=== PATIENT | male | born 1965 | race Caucasian/White ===

== ENCOUNTER 2024-01-16 06:40 | Observation (INO) ==
--- NOTE | 2024-01-15 08:19 | Anesthesiology Consultation ---
Date of Service January 15, 2024 Assessment & Plan (1) Encounter for pre-operative examination: - Infectious disease screening: Per assessment on 01/15/24: No known infectious disease contacts or current infectious disease symptoms. No noted recent Covid positive test result. - Cardiology visit (10/09/23): "NSTEMI (12/2015).. 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 PFO s/p closure (25 mm Amplatzer Cribiform, 02/21/2016) c/b postprocedure AF s/p DCCV.. He is is seen in consultation for symptomatic PACs and PVCs.. Nonobstructive CAD on Cardiac CT.. Plan: Follow-up echo results.. Consider increasing metoprolol dosing in future for better control of palpitation. Continue metoprolol succinate 50 mg daily.. Continue lisinopril 10 mg daily.. Continue Crestor 40 mg daily.. Continue aspirin 81 mg.. Follow-up in 6 months." > Echo performed 10/25/23, unremarkable (details in testing section). 6 month f/u recommended. Chart Review Chart Review: Acceptable Risk for Surgery and Patient NOT seen in Pre Admission Testing History Surgery Operation Date: 01/16/24 08:15 Proposed Procedures p C5-C7 Anterior Cervical Discectomy and Fusion, Spinal Cord Monitoring - Mckay Monzon DO Height/Weight Height: 5 ft 11 in Weight: 131.542 kg Allergies Allergy/AdvReac Type Severity Reaction Status Date / Time clopidogrel [From Plavix] Allergy Severe Hives Verified 01/15/24 07:32 [id number] Reductase AdvReac Severe Muscle Pain Verified 01/15/24 07:45 Inhibitor Medications Home Medications Medication Instructions Recorded Confirmed Last Taken ascorbic acid (vitamin C) 500 mg 500 mg PO QPM 01/15/24 01/15/24 Unknown tablet (Vitamin C) aspirin 81 mg capsule 81 mg PO QPM 01/15/24 01/15/24 Unknown cholecalciferol (vitamin D3) 25 25 mcg PO QPM 01/15/24 01/15/24 Unknown mcg (1,000 unit) tablet (Vitamin D3) coenzyme Q10 100 mg capsule (Co 100 mg PO QPM 01/15/24 01/15/24 Unknown Q-10) lisinopril 20 mg tablet 20 mg PO QAM 01/15/24 01/15/24 Unknown magnesium glycinate 100 mg PO HS 01/15/24 01/15/24 Unknown metoprolol succinate 50 mg 50 mg PO QPM 01/15/24 01/15/24 Unknown tablet,extended release 24 hr vitamin K2 100 mcg capsule 100 mcg PO QPM 01/15/24 01/15/24 Unknown Past Medical History Medical History Chronic neck pain Degenerative disc disease History of myocardial infarction NSTEMI 2016, medically managed "Presumed paradoxical embolus leading to [place]" per [facility] cardio records Hx of colonic polyp Hx of Lyme disease 2016 (per [facility] records) No recent issues per patient Hyperlipidemia no statins (unable to tolerate) Hypertension Paroxysmal atrial fibrillation Post-procedure (PFO closure) > DCCV Follows with [facility] cardio PFO (patent foramen ovale) Dx 2016, s/p Amplatzer PFO closure/"occluder" (2016) Taking ASA 81 mg daily Sleep apnea CPAP Past Family History Family History Grandmother (Maternal) FHx: colon cancer Other No family history of adverse response to anesthesia Past Surgical History Surgical History H/O umbilical hernia repair History of cardiac cath 2016- no stents History of cardioversion History of colonoscopy History of repair of rotator cuff Right S/P epidural steroid injection S/P patent foramen ovale closure Amplatzer PFO closure/"occluder" (2016) Social History Smoking Status: Former smoker Do You Dip or Chew Tobacco: No Smoking End Date: ~1999 Hx Alcohol Use: Yes Alcohol type: beer alcohol intake frequency: a few times a month Hx Substance Use: No substance use type: does not use Lab Results Anesthesia Preop Results Results Anesthesia Widget: WBC 6.33 K/ul (4.8-10.8) 01/14/24 Hgb 14.5 g/dl (14.0-18.0) 01/14/24 Hct 43.6 % (42.0-52.0) 01/14/24 Plt 184 K/uL (130-400) 01/14/24 Na 131 mmol/L (136-145) L 01/14/24 K 4.5 mmol/L (3.5-5.1) 01/14/24 Cl 99 mmol/L (98-107) 01/14/24 CO2 26 mmol/L (21-32) 01/14/24 BUN 22 mg/dl (6-23) 01/14/24 Creat 0.97 mg/dl (0.6-1.4) 01/14/24 Glucose Level 122 mg/dl (70-99(Fasting)) H 01/14/24 PT 10.6 Seconds (9.0-12.0) 01/14/24 PTT 26 Seconds (21-31) 01/14/24 INR 1.0 (0.9-1.1) 01/14/24 Urine Color Yellow 01/14/24 Urine Appearance Clear (Clear) 01/14/24 Urine pH 8.5 (4.5-7.5) H 01/14/24 Urine Specific [place] 1.015 (1.000-1.030) 01/14/24 Urine Protein Negative (Negative) 01/14/24 Urine Glucose (UA) Negative (Negative) 01/14/24 Urine Ketones Negative (Negative) 01/14/24 Urine Blood Negative (Negative) 01/14/24 Urine Nitrite Negative (Negative) 01/14/24 Urine Bilirubin Negative (Negative) 01/14/24 Urine Urobilinogen Negative (Negative) 01/14/24 Urine Leukocyte Esterase Negative (Negative) 01/14/24 Blood Type A Positive 01/14/24 Antibody Screen NEGATIVE 01/14/24 Testing Electrocardiogram Date: 01/14/24 Findings: + NSR @ (70) Chest X-Ray Date: 01/14/24 FINDINGS: A small metallic device projects over the right atrium. Cardiac silhouette is normal in size. No pneumothorax, pleural effusion or airspace c onsolidation. The bones appear normal. IMPRESSION: No acute process. Echocardiogram Date: 10/25/23 LVEF 55-59%. No LV segmental wall motion abnormalities. Mildly dilated RV. Mild MR/TR. Mildly enlarged proximal ascending thoracic aorta. No thrombus. Other Testing Cardiac CT Date: 10/09/23 1. Nonobstructive coronary artery disease with evidence of scattered calcified and noncalcified plaque involving all major coronary arteries. 2. The Agatston calcium score is 107. The estimated arterial age for a person with a CAC score of 107 is 73 years. 3. The exam quality is good (mild artifacts are present).
[2024-01-16] MEDS: ACETAMINOPHEN 500 MG TAB PO SCH (07:21)
[2024-01-16] MEDS: CeleBREX 200 MG CAP PO SCH (07:22)
[2024-01-16] MEDS: GABAPENTIN 600 MG DOSE PO SCH (07:22)
[2024-01-16] MEDS: LR 60ML/HR IV SCH (07:22)
[2024-01-16] MEDS: LR 15ML/HR IV SCH (07:25)
[2024-01-16] MEDS ORDERED: MIDAZOLAM HCL 1 MG/ML 2ML VIAL ONE (07:33)
[2024-01-16] MEDS ORDERED: fentaNYL citrate PF 100 MCG/2 ML VIAL ONE (07:33)
[2024-01-16] MEDS ORDERED: PROPOFOL IV EMULSION 10 MG/ML 20 ML VIAL IV ONE (07:40)
[2024-01-16] MEDS ORDERED: LIDOCAINE 2% 20 MG/ML 5 ML SYR IV ONE (07:40)
[2024-01-16] MEDS ORDERED: ROCURONIUM BROMIDE 10 MG/ML 5 ML VIAL IV ONE ×3 (07:40→08:59)
[2024-01-16] MEDS ORDERED: DEXAMETHASONE SOD INJ 4 MG/ML VIAL ONE (07:40)
--- NOTE | 2024-01-16 08:22 | History & Physical Bridge Note ---
Date of Service January 16, 2024 History & Physical Bridge Note I have examined the patient, reviewed the History & Physical and in the interval since the performance of the History & Physical I have noted the following changes of clinical significance: no changes noted
--- NOTE | 2024-01-16 08:23 | History & Physical Report ---
Date of Service January 16, 2024 Assessment & Plan (1) Herniation of cervical intervertebral disc with radiculopathy: Plan: Anterior cervical discectomy and fusion C5-C7 History of Present Illness Chief Complaint: Neck and arm pain Primary Care Provider: Nii Juarez PA-C This is a 55-year-old male presents with marked neck and arm pain with weakness and is here for surgical invention. Allergies Allergy/AdvReac Type Severity Reaction Status Date / Time clopidogrel [From Plavix] Allergy Severe Hives Verified 01/16/24 07:05 [id number] Reductase AdvReac Severe Muscle Pain Verified 01/16/24 07:05 Inhibitor Home Medications Medication Instructions Recorded Confirmed Type ascorbic acid (vitamin C) 500 mg 500 mg PO QPM 01/15/24 01/16/24 History tablet (Vitamin C) aspirin 81 mg capsule 81 mg PO QPM 01/15/24 01/16/24 History cholecalciferol (vitamin D3) 25 25 mcg PO QPM 01/15/24 01/16/24 History mcg (1,000 unit) tablet (Vitamin D3) coenzyme Q10 100 mg capsule (Co 100 mg PO QPM 01/15/24 01/16/24 History Q-10) lisinopril 20 mg tablet 20 mg PO QAM 01/15/24 01/16/24 History magnesium glycinate 100 mg PO HS 01/15/24 01/16/24 History metoprolol succinate 50 mg 50 mg PO QPM 01/15/24 01/16/24 History tablet,extended release 24 hr vitamin K2 100 mcg capsule 100 mcg PO QPM 01/15/24 01/16/24 History Past Med/Surg History Medical History Chronic neck pain Degenerative disc disease History of myocardial infarction NSTEMI 2016, medically managed "Presumed paradoxical embolus leading to [place]" per [facility] cardio records Hx of colonic polyp Hx of Lyme disease 2015 (per [facility] records) No recent issues per patient Hyperlipidemia no statins (unable to tolerate) Hypertension Paroxysmal atrial fibrillation Post-procedure (PFO closure) > DCCV Follows with [facility] cardio PFO (patent foramen ovale) Dx 2016, s/p Amplatzer PFO closure/"occluder" (2016) Taking ASA 81 mg daily Sleep apnea CPAP Surgical History H/O umbilical hernia repair History of cardiac cath 2016- no stents History of cardioversion History of colonoscopy History of repair of rotator cuff Right S/P epidural steroid injection S/P patent foramen ovale closure Amplatzer PFO closure/"occluder" (2016) Family History Grandmother (Maternal) FHx: colon cancer Other No family history of adverse response to anesthesia Social History Smoking Status: Former smoker Tobacco Type: Cigarettes Smoking End Date: ~1999; Second Hand Exposure: No; Do You Dip or Chew Tobacco: No; Tobacco Cessation Education Requested by Patient: No Hx Alcohol Use: Yes Alcohol type: beer Hx Substance Use: No Preferred Language: Turkmen Communication Ability: Effective Energy Conservation Engineer Required: No Beliefs That Will Affect Care: None Current Living Situation: Spouse Other Information That Helps Us Care for You: No Feels Safe at Home: Yes Safety Concerns: Feels Safe At This Time Assistive Devices: CPAP and Glasses Physical Exam Physical Exam: Patient is alert and oriented Heart regular rhythm Lungs clear Results & Data Results & Data Vital Signs (Past 12 Hours) Vital Signs Temp Pulse Resp BP Pulse Ox O2 Del Method 01/16/24 07:02 36.9 C 78 20 149/109 H 97 Room Air
[2024-01-16] MEDS ORDERED: ATROPINE SULFATE 0.1 MG/ML 10ML SYR IV PRN (08:29)
[2024-01-16] MEDS ORDERED: ePHEDrine sulfate 50 MG/ML AMP IV PRN (08:29)
[2024-01-16] MEDS ORDERED: DROPERIDOL 5 MG/2 ML VIAL IV PRN (08:29)
[2024-01-16] MEDS: ceFAZolin 3000MG 3,000 MG/72.5 ML BAG IV SCH (08:32)
[2024-01-16] MEDS ORDERED: diphenhydrAMINE 50 MG/ML VIAL ONE (09:11)
[2024-01-16] MEDS: ceFAZolin 330 MG/ML 1 GM VIAL ONE (09:16)
[2024-01-16] MEDS ORDERED: HYDROmorphone INJ 2 MG/ML SYR/VIAL ONE (09:18)
[2024-01-16] MEDS ORDERED: DexMEDEtomidine HCL IV 100 MCG/ML VIAL IV ONE (09:26)
[2024-01-16] MEDS: FLOSEAL HEMOSTATIC MATRIX 10ML TOP ONE (10:05)
[2024-01-16] MEDS ORDERED: SUGAMMADEX SODIUM 200 MG/2 ML VIAL IV ONE (10:06)
--- NOTE | 2024-01-16 10:18 | Operative Report ---
Post Operative Report Pre & Post Diagnosis Operation Date: 01/16/24 08:15 Pre-Op Diagnosis: Foraminal Stenosis of Cervical Region, Herniation of Cervical Intervertebral Disc with Radiculopathy Morbid obesity Post-Op Diagnosis: Same I identified the patient and participated in the time-out.: Yes Procedure Operation Date: 01/16/24 08:15 Actual Procedures #1 anterior cervical discectomy with bilateral foraminotomies C5-C6 C6-C7. #2 anterior cervical arthrodesis C5-C6 C6-C7. #3 placement of Spira 7 mm cage at C5-C6 and 8 mm cage at C6-C7 both filled with Koros bone graft. #4 application of K2 M plate and screws from C5 to see 7. Surgeon Mckay Monzon, DO Baker Second Brigida Bearden Estimated Blood Loss 10 Findings See Below The patient is 5 foot 11 weighing over 131 2 kg with a BMI in excess of 40. I am billing a 22 modifier secondary to the significant technical difficulty involved in patient positioning exposure and the procedure itself. Required deepest retractors and longer instruments were to perform his procedure. This at least 50% increased operative time. Specimens None Indications This is a 58-year-old male presents with puncture diagnosis of failed course of nonoperative care is here for surgical invention. Description of Procedure Patient was met with identified informed consent obtained. Patient was then taken to the operative suite underwent patient placed in supine position on the Per table with the head Russell miller head assistant wet process. All bony prominences well- padded eyes inspected to ensure no external pressure placed upon them. This point the anterior cervical spine was prepped and draped in a sterile fashion. The assistance of fluoroscopy identified the C6 vertebral body and a transverse incision was placed along the right anterior aspect of the cervical overlying this region. Blunt dissection with assistance of bipolar electrocautery is warm down to and exposing the anterior cervical spine from C5-C7. Self-retaining retractors placed. I did have the use are longest retractor blades in light of his body habitus. I then performed a complete discectomy of C5-C6 out to the uncovertebral's bilaterally. [place] distracting pins utilized to assist in visualization. Removed all posterior fibers longitudinal ligament bilateral foraminotomies performed. Endplates burred to subcortical bleeding bone and 7 mm Spira cage filled with Koros bone graft tapped in position. Then proceeded to C6-C7. Again complete discectomy performed out to the uncovertebral joints bilaterally. [place] distracting pins again utilized. Removed all posterior annular fibers longitudinal ligament bilateral foraminotomies performed. Endplates burred to subcortical bleeding bone and 8 mm Spira cage filled with Koros bone graft tapped in position. Distracting and pressors removed all anterior osteophytes burred to a smooth cortical surface and a K2 M plate and screws applied with the assistance of fluoroscopy. The incision was then copiously irrigated explored to ensure no damage to surrounding structures remaining bleeding. 10 round LILY drain inserted. The incision was then closed with 2 Vicryl in the fascia and 4 Monocryl for final skin closure. Steri-Strip sterile dressing placed. Patient awakened taken to PACU in stable condition. Please note spinal cord monitoring was last at the procedure no changes noted. Lastly Brigida Bearden was present at the entire surgery and while the patient positioning complex portion of the surgery and possible closure. I attest to the content of the Intraoperative Record and any orders documented therein. Any exceptions are noted below.
[2024-01-16] MEDS: HYDROmorphone INJ 2 MG/ML SYR/VIAL IV PRN (10:45)
--- NOTE | 2024-01-16 11:46 | Anesthesiology Progress Note ---
Date of Service January 16, 2024 Anesthesia Post Procedure Vital Signs Vital Signs: Temp Pulse Pulse Resp BP Pulse Ox O2 Del Method 01/16/24 11:30 36.5 C 72 12 146/96 H 96 Nasal Cannula 01/16/24 11:20 81 14 155/98 H 98 Oxymask 01/16/24 11:10 76 14 140/99 98 Oxymask 01/16/24 11:00 73 12 144/91 H 98 Oxymask 01/16/24 10:50 82 16 153/104 H 90 Oxymask 01/16/24 10:40 81 15 149/104 H 96 Oxymask 01/16/24 10:30 36 C L 82 16 156/110 H 97 Oxymask 01/16/24 07:02 36.9 C 78 20 149/109 H 97 Room Air O2 Flow Rate 01/16/24 11:30 4 01/16/24 11:20 6 01/16/24 11:10 6 01/16/24 11:00 6 01/16/24 10:50 6 01/16/24 10:40 8 01/16/24 10:30 8 01/16/24 07:02 Pain Intensity Bilateral Neck: Pain Intensity: 5 Neck: Pain Intensity: 4 Transfer of Care Handoff Completed per policy Notes Mental Status: alert / awake / arousable and participated in evaluation Nausea / Vomiting: adequately controlled Pain: adequately controlled Airway Patency, RR, SpO2: stable & adequate BP & HR: stable & adequate Hydration State: stable & adequate Anesthetic Complications: no major complications apparent and Pt Satisfied with anesthetic care
[2024-01-16] MEDS ORDERED: ONDANSETRON INJ 2 MG/ML 2 ML VIAL IV PRN (12:38)
[2024-01-16] MEDS ORDERED: LORazepam 0.5 MG in SYRINGE 0.25 ML IV PRN (12:38)
[2024-01-16] MEDS ORDERED: PROMETHAZINE HCL 12.5 MG in SODIUM CHLORIDE 0.9% 50 ML IV PRN (12:38)
[2024-01-16] MEDS ORDERED: diphenhydrAMINE Capsule 25 MG CAP PO PRN (12:38)
[2024-01-16] MEDS ORDERED: NALOXONE HCL 0.4 MG/1 ML VIAL/CARP IV PRN (12:38)
[2024-01-16] MEDS ORDERED: bisacodyL 10 MG SUPP PR PRN (12:38)
[2024-01-16] MEDS ORDERED: SOD PHOSPHATE/SOD BIPHOSPHATE ENEMA 132 ML BTL PR PRN (12:38)
[2024-01-16] MEDS ORDERED: hydrOXYzine HCl 25 MG TAB PO PRN (12:38)
[2024-01-16] MEDS ORDERED: HYDROmorphone INJ 0.5 MG/0.5 ML SYR IV PRN (12:38)
[2024-01-16] MEDS ORDERED: FAMOTIDINE 20 MG TAB PO PRN (12:38)
[2024-01-16] MEDS ORDERED: HYDROmorphone INJ 1 MG/ML SYRINGE IV PRN (12:38)
[2024-01-16] MEDS ORDERED: ONDANSETRON 4 MG OD TAB PO PRN (12:38)
[2024-01-16] MEDS ORDERED: LORazepam 0.5 MG TAB PO PRN (12:38)
[2024-01-16] MEDS ORDERED: ACETAMINOPHEN 1,000 MG/100 ML VIAL IV PRN (12:38)
[2024-01-16] MEDS ORDERED: DO NOT ADMINISTER FLU VACCINE PRN (12:38)
[2024-01-16] MEDS ORDERED: MAGNESIUM HYDROXIDE SUSP 30 ML UDC PO PRN (12:38)
[2024-01-16] MEDS ORDERED: DO NOT ADMINISTER PNEUMOCOCCAL VACCINE PRN (12:38)
[2024-01-16] MEDS ORDERED: ALUMINUM/MAGNESIUM SUSP 30 ML UDC PO PRN (12:38)
[2024-01-16] MEDS ORDERED: METOCLOPRAMIDE HCL INJ 5 MG/ML 2 ML VIAL IV PRN (12:38)
[2024-01-16] MEDS ORDERED: RACEPINEPHRINE 2.25% NEBU SOLN 0.5 ML VIAL INH PRN (12:38)
[2024-01-16] MEDS ORDERED: dexAMETHasone 8 MG in SYRINGE 0 ML IV PRN (12:38)
--- NOTE | 2024-01-16 12:38 | Fluoroscopy Report ---
INTRAOPERATIVE RADIOGRAPHS CLINICAL HISTORY: Cervical spinal fusion surgery. Fluoro time: 24 seconds Ka,r: 5.44 mGy FINDINGS: 2 spot fluoroscopic views of the cervical spine are presented. There has been discectomy at consecutive levels in the lower cervical spine, reportedly at C5-C6 and C6-C7 with anterior fusion a t these 3 levels. The exact levels are difficult to delineate on the provided images. The orthopedic hardware appears intact. An endotracheal tube is in place. IMPRESSION: Intraoperative images from cervical spine fusion surgery as above. Electronically signed by: Gurinder Becker M.D. 01/16/2024 12:37 PM
[2024-01-16] MEDS: LACTATED RINGER'S 1,000 ML IV SCH (12:57)
[2024-01-16] MEDS: ACETAMINOPHEN 500 MG TAB PO PRN (13:21)
--- NOTE | 2024-01-16 13:59 | Consultation ---
Date of Consultation January 16, 2024 Assessment & Plan (1) Herniation of cervical intervertebral disc with radiculopathy: (2) S/P cervical discectomy: -POD#0 s/p ACDF with Dr. Monzon. -Per ortho for pain control, wound care, anticoagulation and activities. -Monitor H&H, continue incentive spirometry, PT/OT when appropriate. Pre-op Hgb 14.5. -EBL: 10mL (3) Paroxysmal atrial fibrillation: -Continue metoprolol succinate and aspirin (4) Sleep apnea: -Continue using personal CPAP HS (5) Hyperlipidemia: -Patient does not tolerate statin therapy. Not currently taking any cholesterol medications. -Did discuss the importance of meeting with PCP to discuss other treatment options post-discharge. (6) Hypertension: -Continue metoprolol succinate and lisinopril DVT Prophylaxis: SCDs and TEDs Code Status: Full Code PCP: Nii Juarez, BARBARA Dispo: Per primary surgical team Patient seen in collaboration with Dr. Gambino. Please see addendum. Thank you for this consultation. We will follow the patient with you during their hospital stay. You can reach a member of the [facility] Hospitalist Team 08/04 via [employer]. I spent a total of 75 minutes coordinating, documenting, and providing care for this patient excluding time spent in the performance of separately billed services. This included personally reviewing all current laboratories and imaging studies, medical reconciliation, outpatient chart review and discussion with specialists. Supervising Physician Co-Signing Physician Notes Patient was seen and examined independently at bedside. Chart reviewed. Case discussed and agree with the documentation above. In summary, this is a 58 year old male who underwent elective ACDF by Dr Monzon today. Seen postoperatively. Doing much better. Prior radiculopathic symptoms resolved and he seemed very pleased. Just some surgical pain. Tolerated po well. No N/V/CP/SOB. Family at be dside. Further surgical management including DVT ppx, diet, activities, pain management and disposition per primary team. Recommended to resume eliquis as soon as possible when okay from surgical perspective. Other chronic medical conditions stable. Follow up labs in am. On exam- General: Sitting comfortably in bed, not in distress, on NC 1 L HEENT: EOMI, KENNEY. Neck collar in place. Surgical site clean with LILY drain with serosanguineous output Chest: Clear breath sounds bilaterally CVS: Regular rate and rhythm, normal heart sounds, no murmur Abdomen: Soft, non tender, not distended, normal bowel sounds Neuro: Awake, alert, oriented, conversing well, non focal Extremities: No edema History of Present Illness Requesting Physician: Mckay Monzon DO Reason for Consultation: Post-Operative Medical Management Attending Physician: Mckay Monzon, History of Present Illness Bijan Rodriges is a 58y/o M with PMHx of hyperlipidemia, NSTEMI [2016], JESUS, HTN, paroxysmal atrial fibrillation, morbid obesity and degenerative disc disease who presented to the hospital this morning to undergo elective ACDF of C5-C7 with Dr. Monzon for the treatment of cervical intervertebral disc herniation w/ radiculopathy. Consult for post-operative medical management was placed by Dr. Monzon. History obtained from patient, and associated PCP/specialty records. Patient was seen at bedside, and was accompanied in the room by his . Patient currently reports some minor neck pain and discomfort. He also endorses some minor throat pain s/p procedural extubation, but is tolerating sips of water just fine at this time. 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 He has not yet urinated since being brought to the floor, nor had any movement out of bed. Patient states that the numbness/tingling/pain he was experiencing in his right arm and shoulder prior to surgery is now gone. 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 Overall, patient is feeling well post-operatively. Allergies Allergy/AdvReac Type Severity Reaction Status Date / Time clopidogrel [From Plavix] Allergy Severe Hives Verified 01/16/24 07:05 [id number]-[id number] Reductase AdvReac Severe Muscle Pain Verified 01/16/24 07:05 Inhibitor Home Medications Medication Instructions Recorded Confirmed Type ascorbic acid (vitamin C) 500 mg 500 mg PO QPM 01/15/24 01/16/24 History tablet (Vitamin C) aspirin 81 mg capsule 81 mg PO QPM 01/15/24 01/16/24 History cholecalciferol (vitamin D3) 25 25 mcg PO QPM 01/15/24 01/16/24 History mcg (1,000 unit) tablet (Vitamin D3) coenzyme Q10 100 mg capsule (Co 100 mg PO QPM 01/15/24 01/16/24 History Q-10) magnesium glycinate 100 mg PO HS 01/15/24 01/16/24 History metoprolol succinate 50 mg 50 mg PO QPM 01/15/24 01/16/24 History tablet,extended release 24 hr vitamin K2 100 mcg capsule 100 mcg PO QPM 01/15/24 01/16/24 History lisinopril 10 mg tablet 10 mg PO DAILY 01/16/24 01/16/24 History Patient History Medical History (Updated 01/16/24 @ 13:56 by Ivory Holt PA-C) Hypertension Paroxysmal atrial fibrillation Post-procedure (PFO closure) > DCCV Follows with [facility] cardio Sleep apnea CPAP Hx of colonic polyp Degenerative disc disease Chronic neck pain Hx of Lyme disease 2015 (per [facility] records) No recent issues per patient Hyperlipidemia no statins (unable to tolerate) History of myocardial infarction NSTEMI 2016, medically managed "Presumed paradoxical embolus leading to UT" per [facility] cardio records PFO (patent foramen ovale) Dx 2016, s/p Amplatzer PFO closure/"occluder" (2016) Taking ASA 81 mg daily Surgical History (Updated 01/16/24 @ 13:49 by Ivory Holt PA-C) S/P cervical discectomy History of cardioversion History of colonoscopy H/O umbilical hernia repair History of repair of rotator cuff Right S/P epidural steroid injection History of cardiac cath 2016- no stents S/P patent foramen ovale closure Amplatzer PFO closure/"occluder" (2016) Family History Grandmother (Maternal) FHx: colon cancer Other No family history of adverse response to anesthesia Social History Smoking Status: Former smoker Tobacco Type: Cigarettes Smoking End Date: ~1999; Second Hand Exposure: No; Do You Dip or Chew Tobacco: No; Tobacco Cessation Education Requested by Patient: No Hx Alcohol Use: Yes Alcohol type: beer Hx Substance Use: No Preferred Language: [place]ican Communication Ability: Effective 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 Physical Exam Physical Exam: General Appearance: WD/WN, vitals as above, NAD, sitting up in bed, pleasant, conversing. Patient is wear supportive neck brace for immobilization. Head: Normocephalic, atraumatic. Eyes: Normal inspection, PERRL, conjunctivae normal, anicteric .sclerae ENT: External ear and nose normal, oropharynx normal. Neck: Surgical bandage present on the anterior aspect, no evidence of bleeding visualized. Respiratory: Normal respiratory effort, lungs clear to auscultation, no wheeze, rales, rhonchi. No accessory muscle use. Cardiovascular: Regular rate, rhythm, no murmur, normal peripheral pulses, no BLE edema. Vessels: No JVD. Chest: Normal inspection of chest. Abdomen/GI: Normal bowel sounds, soft, nontender, no hepatosplenomegaly. Extremities/Musculoskeletal: No cyanosis or clubbing. Compression stockings and SCDs in place bilaterally. Neurologic: PERRL, EOMI, accommodation nl, no face palsy, no dysarthria, CN's II-XI intact bilaterally and moves all extremities. Psychiatric: A+Ox3, euthymic affect. Skin: No rashes, normal color, warm/dry. Results & Data Vital Signs (Past 12 Hours) Vital Signs Temp Pulse Pulse Resp BP Pulse Ox Pulse Ox 01/16/24 13:15 36.5 C 91 H 16 143/94 H 97 01/16/24 12:56 94 H 16 95 01/16/24 12:40 37.2 C 77 16 156/90 H 95 01/16/24 12:38 95 01/16/24 12:30 84 19 140/89 96 01/16/24 12:15 72 17 139/79 96 01/16/24 12:00 80 14 144/95 H 96 01/16/24 11:45 78 12 152/98 H 97 01/16/24 11:30 36.5 C 72 12 146/96 H 96 01/16/24 11:20 81 14 155/98 H 98 01/16/24 11:10 76 14 140/99 98 01/16/24 11:00 73 12 144/91 H 98 01/16/24 10:50 82 16 153/104 H 90 01/16/24 10:40 81 15 149/104 H 96 01/16/24 10:30 36 C L 82 16 156/110 H 97 01/16/24 07:02 36.9 C 78 20 149/109 H 97 O2 Del Method O2 Del Method O2 Flow Rate O2 Flow Rate 01/16/24 13:15 Nasal Cannula 3 01/16/24 12:56 Nasal Cannula 3 01/16/24 12:40 Room Air 01/16/24 12:38 Nasal Cannula 3 01/16/24 12:30 Nasal Cannula 4 01/16/24 12:15 Nasal Cannula 4 01/16/24 12:00 Nasal Cannula 3 01/16/24 11:45 Nasal Cannula 4 01/16/24 11:30 Nasal Cannula 4 01/16/24 11:20 Oxymask 6 01/16/24 11:10 Oxymask 6 01/16/24 11:00 Oxymask 6 01/16/24 10:50 Oxymask 6 01/16/24 10:40 Oxymask 8 01/16/24 10:30 Oxymask 8 01/16/24 07:02 Room Air Laboratory Results Pre-operative Hgb of 14.5 noted in patient records. Diagnostic Findings Cervical Spine X-Ray 01/16/24 08:15 INTRAOPERATIVE RADIOGRAPHS CLINICAL HISTORY: Cervical spinal fusion surgery. Fluoro time: 24 seconds Ka,r: 5.44 mGy FINDINGS: 2 spot fluoroscopic views of the cervical spine are presented. There has been discectomy at consecutive levels in the lower cervical spine, reportedly at C5-C6 and C6-C7 with anterior fusion at these 3 levels. The exact levels are difficult to delineate on the provided images. The orthopedic hardware appears intact. An endotracheal tube is in place. IMPRESSION: Intraoperative images from cervical spine fusion surgery as above. Electronically signed by: Gurinder Becker M.D. 01/16/2024 12:37 PM Pre-Operative EKG 01/14/2024: -Normal sinus rhythm, HR 70bpm Medications Administered Acetaminophen (Acetaminophen 500 Mg Tab) 1,000 mg PO PREOP JN Stop: 01/16/24 18:00 Last Admin: 01/16/24 07:21 Dose: 1,000 mg Documented By: TDM Acetaminophen (Acetaminophen 500 Mg Tab) 1,000 mg PO Q8H PRN PRN Reason: MILD Pain Scale 1,2,3 & Pre PT Stop: 02/15/24 12:37 Last Admin: 01/16/24 13:21 Dose: 1,000 mg Documented By: CINTHIA Celecoxib (Celebrex 200 Mg Cap) 200 mg PO PREOP JN Stop: 01/16/24 18:00 Last Admin: 01/16/24 07:22 Dose: 200 mg Documented By: DIANELYS Gabapentin (Gabapentin 600 Mg Dose) 600 mg PO PREOP JN Stop: 01/16/24 18:00 Last Admin: 01/16/24 07:22 Dose: 600 mg Documented By: DIANELYS Hydromorphone HCl (Hydromorphone Inj 2 Mg/Ml Syr/Vial) 0.5 mg IV Q5M PRN PRN Reason: PACU Use Only-Pain Stop: 01/16/24 16:30 Last Admin: 01/16/24 10:45 Dose: 0.5 mg Documented By: MAGALI Lactated Ringer's (Lr) 1,000 mls @ 15 mls/hr IV .Q24H JN Stop: 01/17/24 05:59 Last Infusion: 01/16/24 08:29 Dose: Infused Documented By: Admin: 01/16/24 07:25 Dose: 15 mls/hr Documented By: DIANELYS Lactated Ringer's (Lr) 1,000 mls @ 60 mls/hr IV .[id number] JN Stop: 01/16/24 22:39 Last Admin: 01/16/24 07:22 Dose: Not Given Documented By: DIANELYS Cefazolin Sodium (Ancef 3000mg) 3,000 mg in 72.5 mls @ 130 mls/hr IV PREOP JN Stop: 01/16/24 18:00 Last Infusion: 01/16/24 12:48 Dose: Infused Documented By: Admin: 01/16/24 08:32 Dose: 130 mls/hr Documented By: [id number] Lactated Ringer's (Lr) 1,000 mls @ 150 mls/hr IV .[id number] JN Stop: 02/15/24 12:59 Last Admin: 01/16/24 12:57 Dose: 150 mls/hr Documented By: AAH Discontinued Medications Cefazolin Sodium (Cefazolin 330 Mg/Ml 1 Gm Vial) Confirm Administered Dose 990 mg .ROUTE .STK-MED ONE Stop: 01/16/24 08:28 Last Admin: 01/16/24 09:16 Dose: 990 mg Documented By: DOMINIQUE Miscellaneous ( Floseal Hemostatic Matrix 10ml) 10 ml TOP ONCE ONE Stop: 01/16/24 10:06 Last Admin: 01/16/24 10:05 Dose: 10 ml Documented By: GMB (4) Sleep apnea Sleep apnea type: obstructive Qualified Code(s): G47.33 - Obstructive sleep apnea (adult) (pediatric) (5) Hyperlipidemia Hyperlipidemia type: unspecified Qualified Code(s): E78.5 - Hyperlipidemia, unspecified (6) Hypertension Hypertension type: unspecified Qualified Code(s): I10 - Essential (primary) hypertension
[2024-01-16] MEDS: traMADol HCL 50 MG TABLET PO PRN (15:46)
[2024-01-16] MEDS: ceFAZolin 2000MG 2,000 MG/15 ML SYR IV SCH (17:53)
[2024-01-16] MEDS: oxyCODONE HCL IR 5 MG TAB (IMMEDIATE RELEASE) PO PRN (18:37)
[2024-01-16] MEDS ORDERED: NON-FORMULARY MEDICATION (Vitamin K2 100 mcg Capsule) PO SCH (21:00)
[2024-01-16] MEDS ORDERED: NON-FORMULARY MEDICATION (Coenzyme Q10 [Co Q-10] 100 mg Capsule) PO SCH (21:00)
[2024-01-16] MEDS ORDERED: MAGNESIUM GLYCINATE 100 MG PO SCH (21:00)
[2024-01-16] MEDS ORDERED: MAGNESIUM PO SCH (21:00)
[2024-01-16] MEDS: ASCORBIC ACID 500 MG TAB PO SCH (21:23)
[2024-01-16] MEDS: DOCUSATE SODIUM/SENNA 50/8.6MG TAB PO SCH (21:23)
[2024-01-16] MEDS: CHOLECALCIFEROL 25 MCG (1000 UNITS) TAB PO SCH (21:23)
[2024-01-16] MEDS: METOPROLOL SUCC 50MG EXT REL TAB PO SCH (21:23)
[2024-01-16] MEDS: ASPIRIN 81 MG ECTAB PO SCH (23:06)
[2024-01-17] MEDS: POLYETHYLENE (MIRALAX) 17 GM PACK PO SCH (05:04)
[2024-01-17] MEDS: NON-FORMULARY MEDICATION (Aspirin 81 mg Capsule) PO SCH (06:12)
[2024-01-17] MEDS: lisinopril 10 MG TAB PO SCH (07:30)
[2024-01-17] MEDS: dexAMETHasone 6 MG in SYRINGE 0 ML IV SCH (07:31)
--- NOTE | 2024-01-17 08:09 | Discharge Summary ---
Date of Service January 17, 2024 Admission HPI Per Admitting Provider This is a 55-year-old male presents with marked neck and arm pain with weakness and is here for surgical invention. Principal Diagnosis Cervical spinal stenosis with radiculopathy Discharge Data Allergies Allergy/AdvReac Type Severity Reaction Status Date / Time clopidogrel [From Plavix] Allergy Severe Hives Verified 01/16/24 07:05 Ilohtjs-OUZ-PjK Reductase AdvReac Severe Muscle Pain Verified 01/16/24 07:05 Inhibitor Consultations 01/16/24 12:38 Consult Hospitalist Routine Procedures Performed Operation Date: 01/16/24 08:15 Actual Procedures p C5-C7 Anterior Cervical Discectomy and Fusion, Spinal Cord Monitoring(Not Applicable) - Mckay Monzon DO Ordered Studies 01/16/24 08:15 FL cervical 2-3V Routine Hospital Course (1) Herniation of cervical intervertebral disc with radiculopathy: Patient underwent anterior cervical discectomy and fusion tolerated this well was taken to the orthopedic floor postoperative. Postoperatively he was swallowing well. No hoarseness. Arm symptoms markedly improved. Excellent strength testing. LILY drain decreasing appropriately. Subsequent discharge home. Discharge orders and instructions found in the chart for further review. Total Time Total Time Spent Total Time Spent (In Minutes): 20 minutes Discharge Plan Discharge Items Patient Disposition: Home - Self-Care Reason For Visit: Foraminal Stenosis of Cervical Region, Herniated N Discharge Diagnosis: Cervical spinal stenosis with radiculopathy Activity: As commented below Non-emergency contact: Primary Care Provider Call non-emergency contact if: you have any medication questions Follow-up/Referrals: Nii Juarez PA-C [Primary Care Provider] - Diet: Regular Addtl Attending Provider Instructions: ACTIVITY RECOMMENDATIONS: SELF CARE INSTRUCTIONS AFTER CERVICAL FUSIONS 1. No smoking. Smoking drastically decreases the chance of a solid fusion. 2. No bending, lifting more than 5 pounds, or twisting (roll like a log when turning in bed). 3. You may shower 3 days after surgery. Thoroughly dry wound. Do not soak in the tub. 4. Cervical collar: Must be worn at all times including sleeping. You may remove the brace only to bath, eat and if you are sitting in a recliner. 5. Please walk as much as you can for exercise. Gradually increase the distance that you walk as your endurance increases. SPECIAL CARE INSTRUCTIONS: VERY IMPORTANT TO READ AND REVIEW A. Do not take any anti-inflammatory medications (i.e. Indocin, Advil, Aspirin, Naprosyn, Aleve, Motrin, etc.) as these may inhibit the chance of a solid fusion. Tylenol is okay to take. B. Your surgical incision has been closed with a cosmetic suture under the skin that will dissolve in about 6 weeks. In 14 days, you can use a pair of cl danielle scissors and cut the suture that is left outside of the skin at the ends of your incision. C. Complications are uncommon, but please contact us if you have any signs or symptoms of: 1. wound infection (fever higher than 102.5 degrees F, redness, separation of wound, drainage, or increasing pain from the incision) 2. blood clots in legs (pain, swelling, redness and warmth in legs) 3. urinary tract infection (fever higher than 102.5 degrees, burning upon urination or increased frequency of urination) 4. nerve problems (inability to walk on your toes or heels, numbness, loss of bowel or bladder control) 5. any other symptoms that concern you. D. Please call the office at if you have any concerns or questions about your operation or recovery. MANAGING PAIN AFTER SPINAL SURGERY 1. Narcotic medication is intended for short-term use and will be provided for surgical pain. Surgical pain usually lasts for a period of 4-6 weeks. Narcotic medication includes Percocet, Vicodin, Darvocet, Tylenol #3 or Lortab. 2. Longer-term pain is more appropriately treated with non-narcotic medication such as Tylenol ES. 3. Muscle spasm is not appropriately treated with narcotics. Muscle relaxers such as Soma, Flexeril or Skelaxin can be used along with Tylenol ES. 4. Remember that we all live with some "aches and pains". This is not unusual or uncommon after an injury or as we get older. 5. We will provide appropriate medication within the normal guidelines of their prescribed use. We will also be very cautious and aware of potential abuse and extended duration of patients' medication needs. 6. Please allow 2-3 days to process refills. Prescriptions will not be mailed but must be picked up at the office. FOLLOW UP VISIT: Keep your scheduled follow-up appointment. Any questions, please call the office at . Pending Studies at Discharge: No Stand-Alone Forms: My [facility], Smoking Cessation Medications and DC Order Prescriptions: New tramadol 50 mg tablet 50 mg PO Q6H PRN (Reason: pain, moderate) Qty: 20 0RF oxycodone 5 mg tablet 5 mg PO Q6H PRN (Reason: pain) Qty: 30 0RF Continued metoprolol succinate 50 mg Tablet Extended Release 24 Hr 50 mg PO QPM cholecalciferol (vitamin D3) [Vitamin D3] 25 mcg (1,000 unit) Tablet 25 mcg PO QPM aspirin 81 mg Capsule 81 mg PO QPM ascorbic acid (vitamin C) [Vitamin C] 500 mg Tablet 500 mg PO QPM coenzyme Q10 [Co Q-10] 100 mg Capsule 100 mg PO QPM vitamin K2 100 mcg Capsule 100 mcg PO QPM magnesium glycinate 100 mg magnesium Capsule 100 mg PO HS lisinopril 10 mg tablet 10 mg PO DAILY Discharge Orders: Discharge Order (Routine); Ordered 01/17/24 Ordered By: Mckay Monzon Admission Data Admit Date/Time: 01/16/24 11:44 Attending Provider: Mckay Monzon Admit Provider: Mckay Monzon Primary Care Provider: Nii Juarez Other Providers: Brielle Walter
[2024-01-17] MEDS ORDERED: lisinopril 20 MG TAB PO SCH (09:00)
--- NOTE | 2024-01-17 11:26 | Hospitalist Progress Note ---
Date of Service January 17, 2024 Assessment & Plan (1) Herniation of cervical intervertebral disc with radiculopathy: (2) S/P cervical discectomy: Plan: -POD#1 s/p ACDF with Dr. Monzon. -Per ortho for pain control, wound care, anticoagulation and activities. -Monitor H&H, continue incentive spirometry, PT/OT when appropriate. Pre-op Hgb 14.5. -EBL: 10mL (3) Palpitations: Plan: Continue home metoprolol Per EP[facility] pt has Hx of paroxysmal afib Not currently on anticoagulation (4) Sleep apnea: Plan: -Continue using personal CPAP HS (5) Hyperlipidemia: Plan: -Patient does not tolerate statin therapy. Not currently taking any cholesterol medications. -Did discuss the importance of meeting with PCP to discuss other treatment options post-discharge. (6) Hypertension: Plan: -Continue metoprolol succinate and lisinopril DVT Prophylaxis: per primary team Code Status: Full Code PCP: Nii Juarez PA-C Dispo: Per primary surgical team Thank you for this consultation. We will follow the patient with you during their hospital stay. You [facility] [employer]. Admission and Anticipated Discharge Date Admission Date: January 16, 2024 Subjective Pt was seen while sitting in chair at bedside. Was being discharged today. Denied acute concerns. Review of Systems Review of Systems: All systems reviewed & are unremarkable except as noted in Subjective Physical Exam Physical Exam: General: Alert, oriented. No acute distress Skin: No noted rashes or bruises Psych: Appropriate mood and affect Neuro: Neck brace in place HEENT: NC/AT CV: RRR Resp: Breath sounds clear bilaterally, no increased effort of breathing. Abdomen:soft, nontender, nondistended Extremities: Edema in lower extremities bilaterally. Results & Data Results & Data Vital Signs (Past 12 Hours) Vital Signs Temp Pulse Resp BP Pulse Ox O2 Del Method 01/17/24 09:30 134/83 01/17/24 08:00 16 98 Room Air 01/17/24 07:26 36.6 C 72 16 164/112 H 95 Room Air 01/17/24 05:08 36.5 C 70 16 155/90 H 96 Room Air 01/17/24 03:20 77 16 94 CPAP 01/17/24 03:08 36.5 C 64 16 156/99 H 95 CPAP 01/17/24 01:08 36.7 C 68 16 148/92 H 94 CPAP 01/16/24 23:50 36.6 C 86 20 159/101 H 92 Room Air (4) Sleep apnea Sleep apnea type: obstructive Qualified Code(s): G47.33 - Obstructive sleep apnea (adult) (pediatric) (5) Hyperlipidemia Hyperlipidemia type: unspecified Qualified Code(s): E78.5 - Hyperlipidemia, unspecified (6) Hypertension Hypertension type: unspecified Qualified Code(s): I10 - Essential (primary) hypertension
--- OUTSIDE RECORDS SUMMARY | 2024-01-18 07:12 | External Medical Summary | Summary of Care ---
Author Name Unknown Organization [facility] Address [address] [place] [address] Phone [phone] Care Team Providers Care Business Account Executive Name Role Phone Nii Juarez PA-C Primary Care Provider [phone] Encounter Details Date Type Department Care Team ([facility] st Contact Info) Description 01/16/2024 Orders Only Family [facility] [address] [place] [address] Nii Juarez PA-C [address] [place] [phone] Allergies Active Allergy Reactions Criticality Noted Date Comments Clopidogrel Bisulfate 02/14/2016 Rash documented as of this encounter (statuses as of 01/16/2024) Medications Medication Sig Dispensed Refills Start Date End Date Status ASPIRIN 81 MG PO CHEW One pill by mouth once a day with food 100 5 05/03/2008 Active Vitamin A 61845 units TABSIndications:in evening Take by mouth. 0 Active Menaquinone-7 (VITAMIN K2) 100 MCG CAPSIndications:in evening Take by mouth. 0 Active Ubiquinol 100 MG CAPSIndications:in afternoon Take by mouth. 0 Active vitamin c (ASCORBIC ACID) 500 MG TabletIndications:in evening Take 1 Tablet by mouth in the morning. 0 Active Misc Natural Products (APPLE CIDER VINEGAR DIET) TABSIndications:in evening Take 450 mg by mouth in the morning. 0 Active Amenia-3 Krill Oil 1000 MG CAPSIndications:in afternoon Take by mouth. 0 Active Magnesium 400 MG Capsule Take 1 Capsule by mouth in the morning and 1 Capsule before bedtime. 0 Active Collagen Hydrolysate POWDIndications:in bedtime Take by mouth daily. 0 Active Rosuvastatin Calcium 40 MG Oral Tablet (Crestor) Take 1 Tablet by mouth in the morning. 30 Tablet 5 09/06/2023 Active Metoprolol Succinate ER 50 MG Oral Tablet Extended Release 24 Hour (toPROL XL)Indications:PAF (paroxysmal atrial fibrillation) (HCC) TAKE 1 TABLET DAILY 90 Tablet 3 09/24/2023 Active Meloxicam 15 MG Oral Tablet (Mobic) Take 1 Tablet by mouth at bedtime. 0 09/01/2023 Active Vitamin D-3 25 MCG (1000 UT) Oral Capsule Take 5 Capsules by mouth in the morning. 0 Active Lisinopril 10 MG Oral Tablet (Prinivil)Indications :HTN, goal below 130/80 Take 1 Tablet by mouth in the morning. 90 Tablet 0 12/26/2023 Active documented as of this encounter (statuses as of 01/16/2024) Active Problems Problem Noted Date Diagnosed Date Obstructive sleep apnea of adult 01/15/2024 Overview: CPAP PAF (paroxysmal atrial fibrillation) 03/29/2021 Body mass index (BMI) of 40.0 to 44.9 in adult 0 01/24/2021 Overview: Per Obesity protocol History of non-ST elevation myocardial infarctio n (NSTEMI) 01/21/2019 HLD (hyperlipidemia) 01/10/2016 Elevated ratio of cholesterol to high density li poprotein 07/28/2015 HTN, goal below 140/90 10/13/2013 OBESITY, BMI 30-34 (SEE ACTUAL BMI) 12/08/2009 Overview: Per Obesity Taxonomy ADVANCE DIRECTIVE INFORMATION 03/12/2005 Overview: No, Advance Directive brochure given to patient at prior appointment. documented as of this encounter (statuses as of 01/16/2024) Resolved Problems Problem Noted Date Diagnosed Date Resolved Date NSTEMI (non-ST elevated myoc ardial infarction) 01/10/2016 01/21/2019 HTN (hypertension) 01/10/2016 6 Encounter for examination fo r normal comparison and control in clinical research program 10/01/2012 02/26/2013 Overview: Diagnosis changed due to Research Module. Go to Snapshot for study details. Dyslipidemia, goal LDL below 160 05/03/2008 08/25/2009 Overview: Per Lipid Taxonomy. OBESITY, UNSPECIFIED 07/09/2005 010 Overview: Per Obesity Taxonomy documented as of this encounter (statuses as of 01/16/2024) Immunizations Name Administration Dates Next Due TDAP (age 10 and older)(Boostrix) 03/05/2019 TDAP (age 11 and older)(Adacel) 05/12/20 09(Deferred: Patient Refused),04/16/2008 documented as of this encounter Social History Tobacco Use Types Packs/Day Years Used Date Smoking Tobacco: Former Cigarettes 1 15 1 - 09/15/1999 Smokeless Tobacco: Never Alcohol Use Standard Drinks/Week Comments Yes 0 (1 standard drink = 0.6 oz pur e alcohol) Occassional PHQ-2 Answer Date Recorded PHQ Adult Total Score 0 01/15/2024 Hunger Vital Sign Answer Date Recorded Within the past 12 months, y ou worried that your food would run out before you got the money to buy more. Never true 01/15/20 24 Within the past 12 months, t he food you bought just didn't last and you didn't have money to get more. Never true 01/15/2024 Sex and Gender Information Value Date Recorded Sex Assigned at Male 01/21/2019 2:17 PM EDT Gender Identity Male 01/21/2019 2:17 PM EDT Sexual Orientation Straight 01/21/2019 2: 17 PM EDT Job Start Date Occupation Industry Not on file Not on file Not on file documented as of this encounter Plan of Treatment Scheduled Procedures Name Priority Associated Diagnoses Date/Ti me COLONOSCOPY FLEXIBLE PROXIMAL DIAGNOSTIC Recall History of colon polyps Health Maintenance Due Date Last Done Comments Albumin/Creatinine Ratio 12/16/1985 Hepatitis C Screening 12/16/1985 Hepatitis B (1 of 3 - 19+ 3-dose series) 12/16/1986 Cologuard 12/16/2012 Fecal Occult Blood Test 12/16/2012 Sigmoidoscopy 12/16/2012 COVID-19 Vaccine (1 - 2023-24 season) 2023 Influenza Vaccine (FLU shot) (Season Ended) 2024 GFR 01/13/2025 01/14/2024, 08/17, 03/29/2021, Additional history exists Depression Screening 01/14/2025 01/15/2024 Diabetes Screening 01/13/2027 01/14/2024, 1 11/07/2022, 03/29/2021, Additional history exists Colonoscopy 11/02/2027 11/02/2022, 10/17, 01/27/2019, Additional history exists Colorectal Cancer Screening 11/02/2027 Lipid Panel 09/06/2028 09/06/2023, 03/16, 07/15/2020, Additional history exists DTaP,Tdap,and Td Vaccines (3 - Td or Tdap) 03/05/2029 03/05/2019, 04/16/2008 RETIRED - COLONOSCOPY-EVERY 5 YRS AGES 18-100 Discontinued 11/02/2022, 11/02/2022, 01/27/2019, Additional history exists GARDASIL-HPV IMMUNIZATION SERIES Aged Out No longer eligible based on patient's age to complete this topic MENINGOCOCCAL (MENACTRA/MENVEO) Aged Out No longer eligible based on patient's age to complete this topic Pneumococcal Vaccine: Pediatrics (0 to 5 Years) and At-Risk Patients (6 to 64 Years) Aged Out No longer eligible based on patient's age to complete this topic Zoster Vaccines Discontinued documented as of this encounter Medical Devices Not on filedocumented as of this encounter Procedures Procedure Name Priority Date/Time Associated Diagnosis Comments XR CHEST 2 VIEWS Routine 01/14/2024 documented in this encounter Results * XR CHEST 2 VIEWS (01/14/2024) Anatomical Region Laterality Modality Chest Other 01/14/2024 Mckay Monzon DO RADIOLOGY ( RAD GENERAL) documented in this encounter Advance Directives Latest Code Status on File Code Status Date Activated Date Inactivated Comments Full Code 01/10/2016 11:09 AM 01/13/2016 3:15 AM This order reflects the patients wishes and were consensually agreed upon. Question Answer Comments Discussion of Advance Directives occurred with: Patient Does the patient have a Living Will? No Does the patient have Health Care Power of Green Pipefitter? No Care Teams Business Account Executive Relationship Specialty Start Date End Date Nii Juarez PA-C [address] [place] [address] [phone] PCP - General Physician Bed Laborer 03/13/21 documented as of this encounter
--- OUTSIDE RECORDS SUMMARY | 2024-01-18 07:13 | External Medical Summary | Summary of Care ---
Author Name Unknown Organization [facility] Address [address] [place] [address] Phone [phone] Care Team Providers Care Seat Cover Installer Name Role Phone Nii Juarez PA-C Primary Care Provider [phone] Reason for Visit * Reason Comments Pre-Op Testing Encounter Details Date Type Department Care Team (Late st Contact Info) Description 01/15/2024 3:00 PM EDT Office Visit [facility] [address] [place] [address] Lindsay Morse CRNP [address], [place] [phone] Preoperative examination*; Cervical spinal stenosis Allergies Active Allergy Reactions Criticality Noted Date Comments Clopidogrel Bisulfate 02/14/2016 Rash documented as of this encounter (statuses as of 01/15/2024) Medications Medication Sig Dispensed Refills Start Date End Date Status ASPIRIN 81 MG PO CHEW One pill by mouth once a day with food 100 5 05/03/2008 Active Vitamin A 29036 units TABSIndications:i n evening Take by mouth. 0 Active Menaquinone-7 (VITAMIN K2) 100 MCG CAPSIndications:i n evening Take by mouth. 0 Active Ubiquinol 100 MG CAPSIndications:i n afternoon Take by mouth. 0 Active vitamin c (ASCORBIC ACID) 500 MG TabletIndications :in evening Take 1 Tablet by mouth in the morning. 0 Active Misc Natural Products (APPLE CIDER VINEGAR DIET) TABSIndications:i n evening Take 450 mg by mouth in the morning. 0 Active Flora-3 Krill Oil 1000 MG CAPSIndications:i n afternoon Take by mouth. 0 Active Magnesium 400 MG Capsule Take 1 Capsule by mouth in the morning and 1 Capsule before bedtime. 0 Active Collagen Hydrolysate POWDIndications:i n bedtime Take by mouth daily. 0 Active Rosuvastatin Calcium 40 MG Oral Tablet (Crestor) Take 1 Tablet by mouth in the morning. 30 Tablet 5 09/06/2023 Active Metoprolol Succinate ER 50 MG Oral Tablet Extended Release 24 Hour (toPROL XL)Indications:PA F (paroxysmal atrial fibrillation) (HCC) TAKE 1 TABLET DAILY 90 Tablet 3 09/24/2023 Active Meloxicam 15 MG Oral Tablet (Mobic) Take 1 Tablet by mouth at bedtime. 0 09/01/2023 Active Vitamin D-3 25 MCG (1000 UT) Oral Capsule Take 5 Capsules by mouth in the morning. 0 Active Lisinopril 10 MG Oral Tablet (Prinivil)Indicat ions:HTN, goal below 130/80 Take 1 Tablet by mouth in the morning. 90 Tablet 0 12/26/2023 Active nitroglycerin (NITROSTAT) 0.[address] 1 Tab under the tongue every 5 minutes as needed for Pain, Chest. 90 Tab 12 01/12/2016 01/15/2024 Discontinued documented as of this encounter (statuses as of 01/15/2024) Active Problems Problem Noted Date Diagnosed Date [...] as of this encounter (statuses as of 01/15/2024) Resolved Problems Problem Noted Date Diagnosed Date [...] as of this encounter (statuses as of 01/15/2024) Immunizations Name Administration Dates Next Due TDAP [...] Date Recorded PHQ Adult Total Score 0 03/29/2021 Hunger Vital Sign Answer Date Recorded Within the past 12 months, y ou worried that your food would run out before you got the money to buy more. Never true 12/01/19 21 Within the past 12 months, t he food you bought just didn't last and you didn't have money to get more. Never true 11/30/2020 Sex and Gender Information Value Date Recorded Sex Assigned at Male 01/21/2019 2:17 PM EDT Gender Identity Male 01/21/2019 2:17 PM EDT Sexual Orientation Straight 01/21/2019 2: 17 PM EDT Job Start Date Occupation Industry Not on file Not on file Not on file documented as of this encounter Last Filed Vital Signs Vital Sign Reading Time Taken Comments Blood Pressure 140/88 01/15/2024 3:02 PM EDT Pulse 91 01/15/2024 3:02 PM EDT Temperature 36.7 C (98.1 F) 01/15/2024 3:02 PM ED T Respiratory Rate 12 01/15/2024 3:02 PM EDT Oxygen Saturation 97% 01/15/2024 3:02 PM EDT Inhaled Oxygen Concentration - - Weight 133 kg (293 lb 3.2 oz) 01/15/2024 3:02 PM EDT Height 177.8 cm (5' 10") 01/15/2024 3:02 PM EDT Body Mass Index 42.07 01/15/2024 3:02 PM EDT documented in this encounter Progress Notes * Lindsay Morse CRNP - 01/15/2024 3:16 PM EDT Images from the original note were not included. Pre-Operative Medical Evaluation Procedure Information Type of Surgery: Anterior cervical discectomy and fusion C5-C7 Referring Physician / Surgeon: Dr.Greg Monzon Date of procedure: 01/16/2024 Brief History of Present Illness: Foraminal stenosis of cervical region History of right shoulder and arm pain. Acute right shoulder pain, numbness, and weakness. History of a rotator cuff repair by Dr. Suresh few years ago, states his shoulder has been doing well up until recently. He also has a history of neck pain that he has done physical therapy in it. X-rays show degenerative changes to his C-spine, concern for a C5-6 radiculopathy. MRI showed cervical foraminalstenosis. Failed conservative measures. Medical History Problem List: Obstructive sleep apnea of adult (01/15/2024) PAF (paroxysmal atrial fibrillation) ([facility]) (03/29/2021) Body mass index (BMI) of 40.0 to 44.9 in adult ([facility]) (01/24/2021) History of non-ST elevation myocardial infarction (NSTEMI) (2018) NSTEMI (non-ST elevated myocardial infarction) ([facility]) (01/10/2016) HLD (hyperlipidemia) (01/10/2016) HTN (hypertension) (01/10/2016) Elevated ratio of cholesterol to high density lipoprotein (07/28/2015) HTN, goal below 140/90 (10/13/2013) Encounter for examination for normal comparison and control in clinical research program (10/01/2012) OBESITY, BMI 30-34 (SEE ACTUAL BMI) (12/08/2009) Dyslipidemia, goal LDL below 160 (05/03/2008) OBESITY, UNSPECIFIED (07/09/2005) ADVANCE DIRECTIVE INFORMATION (03/12/2005) Current Medications Lisinopril 10 MG Oral Tablet (Prinivil), 10 mg, Oral, Daily(AM) Meloxicam 15 MG Oral Tablet (Mobic), 15 mg, Oral, HS Vitamin D-3 25 MCG (1000 UT) Oral Capsule, 5,000 Units, Oral, Daily(AM) Metoprolol Succinate ER 50 MG Oral Tablet Extended Release 24 Hour (toPROL XL), TAKE 1 TABLET DAILY Rosuvastatin Calcium 40 MG Oral Tablet (Crestor), 40 mg, Oral, Daily(AM) Collagen Hydrolysate POWD, Take by mouth daily. Magnesium 400 MG Capsule, 400 mg, Oral, BID(AM/PM) Menaquinone-7 (VITAMIN K2) 100 MCG CAPS, Take by mouth. Misc Natural Products (APPLE CIDER VINEGAR DIET) TABS, 450 mg, Oral, Daily(AM) Flora-3 Krill Oil 1000 MG CAPS, Take by mouth. Ubiquinol 100 MG CAPS, Take by mouth. vitamin c (ASCORBIC ACID) 500 MG Tablet, 500 mg, Oral, Daily(AM) ASPIRIN 81 MG PO CHEW, One pill by mouth once a day with food Vitamin A 50524 units TABS, Take by mouth. (Patient not taking: Reported on 10/09/2023) nitroglycerin (NITROSTAT) 0.4 MG SUBL, 0.4 mg, Sublingual, Q5 Min PRN (Patient not taking: Reportedon 10/09/2023) Allergies: Plavix [clopidogrel bisulfate] Past Medical History: has a past medical history of Hypercholesterolemia, NSTEMI (non-ST elevated myocardial infarction) (HCC) (01/10/2016), and Obesity. Past Surgical History: has a past surgical history that includes umbil hernia repair (reducible) age 7+yr; Cardiac Cath inj. for coronary angiography; Coronary Angiography w/left heart Cath (Right, 01/10/2016); perc xcath clos chris enter com (Bilateral, 02/21/2016); Colonoscopy, Diagnostic (Rectum) (01/27/2019); and Colonoscopy, Diagnostic (Rectum) (11/02/2022). Social History: reports that he quit smoking about 24 years ago. His smoking use included cigarettes. He started smoking about 39 years ago. He has a 15 pack-year smoking history. He has never used smokeless tobacco. He reports current alcohol use. He reports that he does not use drugs. Family History: family history includes Hypertension in his father and mother; hypercholesterolemia in his mother; kidney failure in his mother; myocardial infarction (age of onset: 40) in his brother; myocardial infarction (age of onset: 50) in his brother. Anesthesia History Type of Anesthesia: General Endotracheal and Caudal block Anesthesia reaction: No History of surgical complications: None Personal history of venous thromboembolic disease: None Physical Exam Vitals: 01/15/24 1502 Temp: 36.7 C (98.1 F) Pulse: 91 Resp: 12 SpO2: 97% BP: 140/88 BMI: 42.07 Constitutional: Patient appears well and in no acute distress. Head: Normocephalic. Eyes: Conjunctive and sclera are clear and non-icteric. Pupils are equally round and extra ocular movements intact. ENT: Nares are patent and without discharge. Oropharynx is clear and without erythema or exudates. Buccal mucousa is moist. Neck: Neck is supple. There is no cervical or supraclavicular adenopathy is noted. Pulm: Unlabored, Clear to auscultate. CVS: Heart rate and rhythm regular, without murmur, rub or gallop. No carotid bruit. Extremities: No edema, clubbing or cyanosis. Musculoskeletal: No joint swelling or tenderness. GOLF BALL MOLDER: Alert, awake or oriented x 3. Labs reviewed and are significant for: Results for orders placed or performed in visit on 01/15/24 CHEMISTRY-OUTSIDE Result Value Ref Range Not all results display below - see scan for full detail CREATININE-OUTSIDE LAB 0.97 0.6 - 1.4 MG/DL EGFR-OUTSIDE LAB 86.9 ML/MIN/1.73M2 POTASSIUM-OUTSIDE LAB 4.5 3.5 - 5.1 MMOL/L GLUCOSE-OUTSIDE LAB 122 (A) 70 - 99 MG/DL HOURS FASTING TRIGLYCERIDES-OUTSIDE LAB CHOLESTEROL-OUTSIDE LAB HDL-OUTSIDE LAB CHOL/HDL RATIO-OUTSIDE LAB LDL (CALCULATED)-OUTSIDE LAB LDL (DIRECT MEASURE)-OUTSIDE LAB HEMOGLOBIN, P6L-ONEPRNH LAB PHOSPHORUS-OUTSIDE LAB PTH-OUTSIDE LAB MICROALBUMIN RATIO-OUTSIDE LAB PROTEIN, UA-OUTSIDE LAB HGB 14.5 14 - 18 G/DL EKG 08/2023 Normal sinus rhythm Normal ECG Echocardiogram 10/2023 The examination is adequate to evaluate the referral indication. The qualitative LV ejection fraction is 55-59% (normal). No LV segmental wall motion abnormalities. The right ventricular cavity is mildly dilated. The right ventricular systolic function is qualitatively normal. No significant valvular disease is present. The proximal ascending thoracic aorta is mildly enlarged. Surgical Risk Scoring Revised Cardiac Risk Index (RCRI) High-risk type of surgery (examples include vascular and any open intraperitoneal or intrathoracic procedures): 0=No History of ischemic heart disease (history of myocardial infarction or positive exercise test, current compliant of chest pain considered to be secondary to myocardia ischemia, use of nitrate therapy, or ECG with pathological Q waves; do not count prior coronary revascularization procedure unless one of the other criteria for ischemic heart disease is present): 1=Yes History of heart failure: 0=No History of cerebrovascular disease: 0=No Diabetes mellitus requiring treatment with insulin: 0=No Preoperative serum creatinine >2.0 mg/dL (177 micromol/L): 0=No Pt has revised cardiac index score of: One Risk Factor- 1.0% (95% CI: 0.5-1.4) Screening for Obstructive Sleep Apnea (STOP-BANG) Do you Snore loudly? 0=No Do you often feel Tired, Fatigued, or Sleep? 0=No Has anyone Observed you Stop Breathing or Choking/Gasping during sleep? 1-Yes Do you have or are you being treated for High Blood Pressure? 1=Yes BMI over 35? 1=Yes Age older than 50? 1=Yes Neck size large? (For males - 17 inches or larger, For females - 16 inches or larger) 1=Yes Male? 1=Yes Score 0-2:low risk JESUS, 3-4: intermediate risk of JESUS, 5-8: high risk JESUS 6 Assessment and Plan Preoperative examination Cervical spinal stenosis Medically cleared for anterior cervical discectomy and fusion C5-C7 Functional Assessment They are able to walk up a flight of stairs. The patient's functional status is adequate (equal to 4 METS). 1 MET: 4 METs: 4-10 METs: Can take care of self, such as eat, dress or use the toilet. Can walk to block or go up a flight of steps. Can do heavy house work. Surgical Risk Assessment Patient is low medical risk for the listed procedure. Medication adjustments: Per preoperative instructions Additional consults or testing: None documented in this encounter Nursing Notes * Rema Rodgers LPN - 01/15/2024 2:59 PM EDT The patient has been properly identified by confirmation of name and date of . Chief Complaint Patient presents with Pre-Op Testing Patient is here for pre op exam for upcoming back surgery with Dr. Monzon. [facility] documented in this encounter Plan of Treatment Scheduled Procedures Name Priority Associated Diagnoses Date/Ti me COLONOSCOPY FLEXIBLE PROXIMAL DIAGNOSTIC Recall History of colon polyps Health Maintenance Due Date Last Done Comments Albumin/Creatinine Ratio 12/16/1985 Hepatitis C Screening 12/16/1985 Hepatitis B (1 of 3 - 19+ 3-dose series) 12/16/1986 Cologuard 12/16/2012 Fecal Occult Blood Test 12/16/2012 Sigmoidoscopy 12/16/2012 COVID-19 Vaccine ( season) 2023 Influenza Vaccine (FLU shot) (Season [...] Not on filedocumented as of this encounter Visit Diagnoses Diagnosis Preoperative examination- Primary Preoperative examination, unspecified Cervical spinal stenosis Spinal stenosis in cervical region documented in this encounter Advance Directives Latest Code Status on File Code Status Date Activated Date Inactivated Comments Full Code 01/10/2016 11:09 AM 01/13/2016 3:15 AM This order reflects the patients wishes and were consensually agreed upon. Question Answer Comments Discussion of Advance Directives occurred with: Patient Does the patient have a Living Will? No Does the patient have Health Care Power of Editor Trade Journal? No Care Teams Seat Cover Installer Relationship Specialty Start Date End Date Nii Juarez PA-C [address] [place] [id number] PCP - General Physician Blower Installer 03/13/21 documented as of this encounter
--- OUTSIDE RECORDS SUMMARY | 2024-01-18 07:13 | External Medical Summary | Summary of Care ---
Author Name Unknown Organization [facility] Address [address] [place] [address] Phone [phone] Care Team Providers Care Fitness And Wellness Instructor Name Role Phone Nii Juarez PA-C Primary Care Provider [phone] Encounter Details Date Type Department Care Team ([facility] st Contact Info) Description 01/15/2024 Orders Only Family [facility] [address] [place] [address] Nii Juarez PA-C [address] [place] [address] Allergies Active Allergy Reactions Criticality Noted Date Comments Clopidogrel Bisulfate 02/14/2016 Rash documented as of this encounter (statuses as of 01/15/2024) Medications Medication Sig Dispensed Refills Start Date End Date Status ASPIRIN 81 MG PO CHEW One pill by mouth once a day with food 100 5 05/03/2008 Active nitroglycerin (NITROSTAT) 0.[address] 1 Tab under the tongue every 5 minutes as needed for Pain, Chest. 90 Tab 12 01/12/2016 Active Additional Information Patient not taking.Reported on 10/09/2023 Vitamin A 49782 units TABSIndications:in evening Take by mouth. 0 Active Menaquinone-7 (VITAMIN K2) 100 MCG CAPSIndications:in evening Take by mouth. 0 Active Ubiquinol 100 MG CAPSIndications:in afternoon Take by mouth. 0 Active vitamin c (ASCORBIC ACID) 500 MG TabletIndications:i n evening Take 1 Tablet by mouth in the morning. 0 Active Misc Natural Products (APPLE CIDER VINEGAR DIET) TABSIndications:in evening Take 450 mg by mouth in the morning. 0 Active Porter-3 Krill Oil 1000 MG CAPSIndications:in afternoon Take [...] 0 Active Lisinopril 10 MG Oral Tablet (Prinivil)Indicatio ns:HTN, goal below 130/80 Take 1 Tablet by mouth in the morning. 90 Tablet 0 12/26/2023 Active documented as of this encounter (statuses as of 01/15/2024) Active Problems Problem Noted Date Diagnosed Date PAF (paroxysmal atrial fibrillation) 03/29/2021 Body mass [...] Fecal Occult Blood Test 12/16/2012 Sigmoidoscopy 12/16/2012 Depression Screening 03/29/2022 03/29/2021 COVID-19 Vaccine ( season) 2023 Influenza Vaccine (FLU shot) (Season Ended) 2024 GFR 09/06/2024 01/14/2024, 08/17, 03/29/2021, Additional history exists Diabetes Screening 09/06/2026 01/14/2024, 1 11/07/2022, 03/29/2021, Additional history exists [...] Procedure Name Priority Date/Time Associated Diagnosis Comments CHEMISTRY-OUTSIDE Routine 01/14/2024 documented in this encounter Results * (ABNORMAL) CHEMISTRY-OUTSIDE (01/14/2024) Not all results display below - see scan for full detail OUTSIDE LAB (SEE SCANNED REPORT) Comment:SCAN INCLUDES: BMP, COAG, CBCD, BLOOD TYPE, ANTIBODY SCREEN CREATININE-OUTSID E LAB 0.97 0.6 - 1.4 MG/DL OUTSIDE LAB (SEE SCANNED REPORT) EGFR-OUTSIDE LAB 86.9 ML/MIN/1.7 3M2 OUTSIDE LAB (SEE SCANNED REPORT) POTASSIUM-OUTSIDE LAB 4.5 3.5 - 5.1 MMOL/L OUTSIDE LAB (SEE SCANNED REPORT) GLUCOSE-OUTSIDE LAB 122(A) 70 - 99 MG/DL OUTSIDE LAB (SEE SCANNED REPORT) HOURS FASTING OUTSID E LAB (SEE SCANNED REPORT) TRIGLYCERIDES-OUT SIDE LAB OUTSIDE LAB (SEE SCANNED REPORT) CHOLESTEROL-OUTSI DE LAB OUTSIDE LAB (SEE SCANNED REPORT) HDL-OUTSIDE LAB OUTS [facility] LAB (SEE SCANNED REPORT) CHOL/HDL RATIO-OUTSIDE LAB OUTSIDE LA B (SEE SCANNED REPORT) LDL (CALCULATED)-OUTS [facility]AH LAB OUTSIDE LAB (SEE SCANNED REPORT) LDL (DIRECT MEASURE)-OUTSIDE LAB OUTSIDE LAB (SEE SCANNED REPORT) HEMOGLOBIN, [id number] LAB OUTSIDE LAB (SEE SCANNED REPORT) PHOSPHORUS-OUTSID E LAB OUTSIDE LAB (SEE SCANNED REPORT) PTH-OUTSIDE LAB OUTS [facility] LAB (SEE SCANNED REPORT) MICROALBUMIN RATIO-OUTSIDE LAB OUTSIDE LA B (SEE SCANNED REPORT) PROTEIN, UA-OUTSIDE LAB OUTSIDE LAB (SEE SCANNED REPORT) HGB 14.5 14 - 18 G/DL OUTSIDE LAB (SEE SCANNED REPORT) 01/14/2024 Mckay Monzon DO LABORATORY OUTSIDE LAB (SEE SCANNED REPORT) documented in this encounter Advance Directives Latest Code Status on File Code Status Date Activated Date Inactivated Comments Full Code 01/10/2016 11:09 AM 01/13/2016 3:15 AM This order reflects the patients wishes and were consensually agreed upon. Question Answer Comments Discussion of Advance Directives occurred with: Patient Does the patient have a Living Will? No Does the patient have Health Care Power of Software Development Project Manager? No Care Teams Fitness And Wellness Instructor Relationship Specialty Start Date End Date Nii Juarez PA-C [address] [place] [address] [place] [id number] PCP - General Physician Water Resource Agent 03/13/21 documented as of this encounter
== END 2024-01-17 11:47 | disposition home or self-care (01) ==
LOC: ASU 06:40 → 3E 06:40